=== PATIENT | female | born 1995 | race Caucasian/White ===

== ENCOUNTER 2016-11-14 20:51 | Emergency (ER) | payer OTHER ==
[~2016-11-14] VITALS: Ht 175.3 cm; Wt 79.9 kg
[2016-11-14 21:28] LABS: HEMATOCRIT 40.5 % (36.0-46.0); MCH 31.6 PG (29.0-34.0); MCHC 33.3 G/DL (30.0-36.0); MCV 94.8 FL (83-99); MEAN PLAT.VOLUME 11.4 uM^3 (9.5-12.4); PLATELET COUNT 130 K/uL (156-360); RBC DIS.WIDTH-CV 12.8 % (11.8-14.6); RBC DIS.WIDTH-SD 44.2 % (39-53); RED BLOOD COUNT 4.27 M/uL (3.80-5.20); WHITE BLOOD COUNT 7.8 K/uL (4.1-10.2)
[2016-11-14 21:38] LABS: CHLORIDE 105 mEq/L (99-109); POTASSIUM 3.9 mEq/L (3.7-5.4); SODIUM 137 mEq/L (136-147)
[2016-11-14 21:40] LABS: GLUCOSE 89 mg/dL (70-99)
[2016-11-14 21:42] LABS: ANION GAP 8 MEQ/L (2-14); TOTAL BILIRUBIN 0.6 mg/dL (0.0-1.0)
[2016-11-14 21:44] LABS: ALKALINE PHOSPHATASE 46 IU/L (3-129); GFR ESTIMATE (CALCULATED) > 59 mL/min/
[2016-11-14 21:45] LABS: UREA NITROGEN (BUN) 10 mg/dL (9-23)
[2016-11-14 21:47] LABS: LIPASE 7 U/L (1.0-51.0)
[2016-11-14 21:57] LABS: QUANTITATIVE HCG < 4.0 MIU/ML
[2016-11-14] MEDS ORDERED: IMITREX50 MG PO (23:49)
[2016-11-14] MEDS ORDERED: TOPAMAX50 MG PO (23:49)
[2016-11-14 23:52] LABS: ADD MIUA? NO; BILIRUBIN NEGATIVE; BLOOD NEGATIVE; COLOR YELLOW ((YELLOW)); GLUCOSE (STRIP) NEGATIVE; KETONES 20; LEUKOCYTES NEGATIVE; NITRITE NEGATIVE; PROTEIN (STRIP) NEGATIVE; UCUL ADDED? NO; UROBILINOGEN 0.2 MG/DL (0.2-1.0)
[2016-11-15 00:39] VITALS: BP 104/74
[2016-11-15 00:42] LABS: SPECIFIC GRAVITY 1.091 (1.000-1.030)
== END 2016-11-15 00:41 | disposition home or self-care (01) ==
LOC: EME 20:51 → EXP 20:51
PROVIDERS: Physician Assistant
DX: R10.31 Right lower quadrant pain (principal); R11.2 Nausea with vomiting, unspecified; G43.909 Migraine, unspecified, not intractable, without status migrainosus; F17.200 Nicotine dependence, unspecified, uncomplicated
CPT/HCPCS: 74177; 80053; 81003; 83690; 84702; 85027; 99281; 99284; J1885; J2405; J2765; J7030